=== PATIENT | male | born 1960 | race Caucasian/White ===

== ENCOUNTER 2020-09-26 12:46 | Emergency (ER) | payer SELFPAY ==
[~2020-09-26 12:46] MED LIST: AFLURIA QU; ASPIRIN EC81 MG PO; BUSPIRONE HCL15 MG PO; ELIQUIS2.5 MG PO; ENALAPRIL MALEA20 MG PO; HYDROCODON-ACE1 EAC4 PO; OMEPRAZOLE20 MG PO; PERCOCET 10-321 EACH PO; PRAVASTATIN SOD40 MG PO; VOLTAREN EC 7575 MG PO
[2020-09-26 14:17] LABS: RED BLOOD COUNT 4.11 M/UL (4.20-5.50); WHITE BLOOD COUNT 9.9 K/UL (4.5-11.0)
[2020-09-26 16:48] LABS: BUN/CREATININE RATIO 19 (0-10)
[2020-09-26] MEDS ORDERED: CEPHALEXIN500 MG PO (18:33)
[2020-09-26] MEDS ORDERED: BACTRIM DS TAB1 EACH PO (18:33)
== END 2020-09-26 20:45 | disposition home or self-care (01) ==
LOC: ER1 12:46
PROVIDERS: Family Medicine
DX: L02.416 Cutaneous abscess of left lower limb (principal); I11.0 Hypertensive heart disease with heart failure; I50.9 Heart failure, unspecified; M19.90 Unspecified osteoarthritis, unspecified site; Z88.0 Allergy status to penicillin; Z96.652 Presence of left artificial knee joint
CPT/HCPCS: 73700; 80053; 82962; 85025; 87070; 87077; 87186; 87205; 96374; 99284; J3370; J7030

== ENCOUNTER 2020-12-25 12:18 | Emergency (ER) | payer SELFPAY ==
[~2020-12-25 12:18] MED LIST changes: +BACTRIM DS TAB1 EACH PO; +CEPHALEXIN500 MG PO
[2020-12-25 14:12] LABS: HEMOGLOBIN 10.6 gm/dl (14.0-17.5); RED BLOOD COUNT 4.62 M/UL (4.20-5.50); WHITE BLOOD COUNT 10.2 K/UL (4.5-11.0)
[2020-12-25 14:37] LABS: BUN/CREATININE RATIO 13 (0-10)
== END 2020-12-25 15:40 | disposition home or self-care (01) ==
LOC: ER1 12:18
PROVIDERS: Nurse Practitioner
DX: S00.03XA Contusion of scalp, initial encounter (principal); I25.10 Atherosclerotic heart disease of native coronary artery without angina pectoris; E11.9 Type 2 diabetes mellitus without complications; I10 Essential (primary) hypertension; W19.XXXA Unspecified fall, initial encounter
CPT/HCPCS: 70450; 80053; 82550; 82553; 83874; 84484; 85025; 93005; 99284